=== PATIENT | male | born 1955 | race Caucasian/White ===

== ENCOUNTER → 2021-12-31 | Outpatient (REF) | payer MEDICARE, MEDICAID, SELFPAY ==
[2021-12-31 07:19] LABS: Valproic Acid (Depakene) Level 16 ug/mL (50-100)
== END | disposition home or self-care (01) ==
LOC: OLS.ACW300 05:59
PROVIDERS: Visit Provider Family Medicine
DX: F01.51 Vascular dementia, unspecified severity, with behavioral disturbance (principal)
CPT/HCPCS: 36415; 80164